=== PATIENT | male | born 1980 | race Caucasian/White ===

== ENCOUNTER 2021-05-21 17:57 | Emergency (ER) | payer MEDICARE, MEDICAID, SELFPAY ==
--- NOTE | 2021-05-21 18:10 | XRR_ITS ---
PROCEDURE INFORMATION: Exam: XR Chest Exam date and time: 05/21/2021 6:10 PM Age: 41 years old Clinical indication: Shortness of breath; Additional info: Dyspnea TECHNIQUE: Imaging protocol: XR of the chest. Views: 2 views. COMPARISON: No relevant prior studies available. FINDINGS: Lungs: Unremarkable. No consolidation. Azygos fissure, normal variant. Pleural spaces: Unremarkable. No pleural effusion. No pneumothorax. Heart/Mediastinum: Unremarkable. No cardiomegaly. Bones/joints: Unremarkable. XR/XR chest 2V* [id number] IMPRESSION: 1. No acute findings. 2. Azygos fissure, normal variant.
[2021-05-21 18:35] VITALS: PULSE 74; RESP 24; TEMP 36.7; O2SAT 98
--- NOTE | 2021-05-21 20:10 | ECG_ITS ---
[facility] Test Date: 2021-05-21 Pat Name: Josue Boyd Department: Room: Gender: Male Scanning Coordinator: : 1980 Requested By: Dewey Moy Order Number: [id number] Jennifer MD: Mitchell Ann M.D. Measurements Intervals Kite Rate: 70 P: 87 LA: 142 QRS: 67 QRSD: 78 T: 77 QT: 410 QTc: 444 Interpretive Statements SINUS RHYTHM No previous ECG available for comparison Electronically Signed On 05-22-2021 18:37:06 SENIOR PRODUCTION SUPERVISOR by Micthell Ann M.D. [id number]
[2021-05-21 22:13] VITALS: BP 128/81; PULSE 72; RESP 20; O2SAT 98
[2021-05-21 22:15] LABS: Basophils # 0.1 10^3/uL (0.0-0.1); Basophils % 0.3 %; Eosinophils # 0.1 10^3/uL (0.0-0.8); Eosinophils % 0.6 %; Hematocrit 40.7 % (42.0-52.0); Lymphocytes # 1.8 10^3/uL (0.8-4.8); Lymphocytes % 12.5 %; Mean Corpuscular HGB Conc 34.4 g/dL (30.0-36.0); Mean Corpuscular Hemoglobin 31.6 pg (28.0-34.0); Mean Corpuscular Volume 91.9 fl (80-94); Mean Platelet Volume 9.8 fL (7.4-10.4); Monocytes # 0.7 10^3/uL (0.2-0.9); Monocytes % 4.4 %; Neutrophils # 11.95 10^3/uL (1.8-7.7); Neutrophils % 81.9 %; Nucleated Red Blood Cells % 0 %; Platelet Count 314 10^3/cmm (130-400); Red Blood Count 4.43 10^6/uL (4.1-5.3); White Blood Count 14.6 10^3/uL (4.0-10.0)
[2021-05-21 22:43] LABS: Troponin(5th) Baseline 8 ng/L (0-15)
[2021-05-21 22:53] LABS: Alanine Aminotransferase 13 U/L (0-41); Albumin Level 4.2 g/dL (3.5-5.2); Alkaline Phosphatase 195 IU/L (40-130); Anion Gap 17.7 (5-19); Aspartate Amino Transferase 18 U/L (0-40); Blood Urea Nitrogen 16 mg/dL (6-20); Carbon Dioxide 24 mmol/L (22-29); Chloride 102 mmol/L (98-107); Glomerular Filtration Rate 123.1 mL/min (90-130); Glucose 106 mg/dL (65-115); NT Pro B Type Natriuretic Pept 365 pg/mL (0-125); Osmolality Calculated 292 mOsm/kg (285-295); Potassium 3.7 mmol/L (3.5-5.1); Sodium 140 mmol/L (136-145); Total Bilirubin 0.4 mg/dL (0.15-1.2); Total Protein 7.2 g/dL (6.6-8.7)
--- NOTE | 2021-05-22 00:39 | W.ED.SOB ---
HPI - SOB/Dyspnea General: Chief Complaint: Shortness of Breath/Dyspnea Stated Complaint: SOB X 1 WEEK Time Seen by Provider: 05/22/21 00:34 Source: patient Mode of arrival: ambulatory Limitations: no limitations History of Present Illness: HPI Narrative: 41-year-old male who states that over the last week he has had cough congestion low-grade fevers and body aches. He has been having a runny nose as well. Some dyspnea patient here is 98% on room air denies any known sick contacts is a smoker no history any lung issues in the past. Associated symptoms: Deny abdominal pain, chest pain, fever(s), nausea or vomiting Review of Systems Const: Denies: fever(s), chills, body aches or change in appetite Eyes: Denies: blurry vision or eye discomfort ENMT: Denies: throat pain or dental pain Card: Denies: chest pain Resp: Reports: dyspnea and non-productive cough GI: Denies: abdominal pain, nausea, vomiting or diarrhea : Denies: dysuria Musc: Denies: neck pain or back pain Skin/Breast: Denies: rash Neuro: Denies: headache(s) Psych: Denies: depression Jose Alejandro/Lymph: Denies: easy bruising All/Imm: Denies: urticaria PFSH ED PFSH: Family History (Updated 05/22/21 @ 00:53 by Yoli Nieves MD) Denies family history of CAD (coronary artery disease) Social History (Updated 05/22/21 @ 00:52 by Yoli Nieves MD) Smoking and tobacco status: current every day smoker Physical Exam Const: COMMON NORMALS: no acute distress, patient oriented x3 and healthy appearing HENMT: COMMON NORMALS: normocephalic and atraumatic HEAD & SCALP: normocephalic and atraumatic Eye: COMMON NORMALS: Equal, round and reactive pupils present and EOMs intact bilaterally PUPIL: Yes Equal, round and reactive pupils present Neck/C-Spine: COMMON NORMALS: full ROM and supple Chest: COMMONS NORMALS: normal inspection of the chest and normal palpation of entire chest wall Resp: COMMON NORMALS: normal respiratory effort, No retractions, No use of accessory muscles and clear to auscultation bilaterally AUSCULTATION: clear to auscultation bilaterally Cardio: COMMON NORMALS: regular rate, regular rhythm and No murmurs present (Cardio) RATE: regular rate RHYTHM: regular rhythm GI: COMMON NORMALS: Normal to inspection, nondistended, normoactive bowel sounds present, Soft to palpation, non-tender and no masses PALPATION: Yes Soft to palpation Extremity: COMMON NORMALS: normal to inspection and full ROM Neuro: COMMON NORMALS: patient oriented x3, moves all extremities and no focal motor deficits Psych: COMMON NORMALS: mental status grossly normal, Normal thought process present and cooperative THOUGHT PROCESS: Normal thought process present Skin: COMMON NORMALS: no rashes or lesions noted and no wounds GENERAL SKIN EXAM: no rashes or lesions noted Course Vital Signs: Vital signs: Vital Signs Temperature 98.0 F 05/21/21 18:35 Pulse Rate 72 05/21/21 22:13 Respiratory Rate 20 H 05/21/21 22:13 Blood Pressure 128/81 05/21/21 22:13 Pulse Oximetry 98 05/21/21 22:13 MDM - SOB/Dyspnea Medical Decision Making Patient presents here with cough congestion likely an upper respiratory infection we will do a PCR Covid patient given Decadron here we will place on albuterol and Augmentin he is stable for discharge is to follow-up with the PCP and return if worsening. Lab Data : 05/21/21 22:08 05/21/21 22:08 Labs/Radiology: Radiology Impressions Chest X-Ray 05/21/21 18:10 IMPRESSION: 1. No acute findings. 2. Azygos fissure, normal variant. Laboratory Results WBC 14.6 10^3/uL (4.0-10.0) H 05/21/21 22:08 RBC 4.43 10^6/uL (4.1-5.3) 05/21/21 22:08 Hgb 14.0 g/dL (11.7-16.6) 05/21/21 22:08 Hct 40.7 % (42.0-52.0) L 05/21/21 22:08 MCV 91.9 fl (80-94) 05/21/21 22:08 MCH 31.6 pg (28.0-34.0) 05/21/21 22:08 MCHC 34.4 g/dL (30.0-36.0) 05/21/21 22:08 RDW 13.0 % (12.1-15.1) 05/21/21 22:08 Plt Count 314 10^3/cmm (130-400) 05/21/21 22:08 MPV 9.8 fL (7.4-10.4) 05/21/21 22:08 Neut % (Auto) 81.9 % 05/21/21 22:08 Lymph % (Auto) 12.5 % 05/21/21 22:08 Gregory % (Auto) 4.4 % 05/21/21 22:08 Eos % (Auto) 0.6 % 05/21/21 22:08 Baso % (Auto) 0.3 % 05/21/21 22:08 Neut # (Auto) 11.95 10^3/uL (1.8-7.7) H 05/21/21 22:08 Lymph # (Auto) 1.8 10^3/uL (0.8-4.8) 05/21/21 22:08 Gregory # (Auto) 0.7 10^3/uL (0.2-0.9) 05/21/21 22:08 Eos # (Auto) 0.1 10^3/uL (0.0-0.8) 05/21/21 22:08 Baso # (Auto) 0.1 10^3/uL (0.0-0.1) 05/21/21 22:08 Nucleated RBC % (auto) 0 % 05/21/21 22:08 Nucleated RBCs # 0.0 /100WBC 05/21/21 22:08 Sodium 140 mmol/L (136-145) 05/21/21 22:08 Potassium 3.7 mmol/L (3.5-5.1) 05/21/21 22:08 Chloride 102 mmol/L (98-107) 05/21/21 22:08 Carbon Dioxide 24 mmol/L (22-29) 05/21/21 22:08 Anion Gap 17.7 (5-19) 05/21/21 22:08 BUN 16 mg/dL (6-20) 05/21/21 22:08 Creatinine 0.7 mg/dL (0.7-1.2) 05/21/21 22:08 GFR Calculation 123.1 mL/min (90-130) 05/21/21 22:08 Glucose 106 mg/dL (65-115) 05/21/21 22:08 Calculated Osmolality 292 mOsm/kg (285-295) 05/21/21 22:08 Calcium 9.0 mg/dL (8.5-10.5) 05/21/21 22:08 Total Bilirubin 0.4 mg/dL (0.15-1.2) 05/21/21 22:08 AST 18 U/L (0-40) 05/21/21 22:08 ALT 13 U/L (0-41) 05/21/21 22:08 Alkaline Phosphatase 195 IU/L (40-130) H 05/21/21 22:08 Troponin T Baseline 8 ng/L (0-15) 05/21/21 22:08 NT-Pro-B Natriuret Pep 365 pg/mL (0-125) H 05/21/21 22:08 Total Protein 7.2 g/dL (6.6-8.7) 05/21/21 22:08 Albumin 4.2 g/dL (3.5-5.2) 05/21/21 22:08 Globulin 3.0 g/dL (1.3-4.6) 05/21/21 22:08 Discharge Plan Discharge Patient Disposition: Home Clinical Impression: Upper respiratory infection Condition: Stable Prescriptions: New albuterol sulfate 90 mcg/actuation HFA aerosol inhaler 2 inh INHALATION Q6H PRN (Reason: shortness of breath or wheezing) Qty: 8 0RF Augmentin 875-125 mg tablet 1 tab PO BID Qty: 14 0RF Discharge Orders: Discharge ED (Routine); Ordered 05/22/21 Ordered By: Yoli Nieves Referrals: FARRAH NAGEL DO [Family Provider] - 1-3 days Discharge Diet: Advance as tolerated Discharge Activity: Resume usual activity Patient Instructions: Upper Respiratory Infection (ED) Coding Level of Care Code ED 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
[2021-05-22] MEDS: dexamethasone 10 mg/mL INJ IVP (00:53)
[2021-05-22 00:56] VITALS: BP 118/93; PULSE 69; RESP 18; TEMP 36.8; O2SAT 98
[2021-05-22 01:12] VITALS: PULSE 86; RESP 20; O2SAT 99
[2021-05-22] MEDS: albuterol 8 gm MDI 2 PUFF INHALATION (01:12)
[2021-05-22 01:43] VITALS: BP 130/78; PULSE 69; RESP 20; O2SAT 98
[2021-05-25 11:06] LABS: Quest SARS-CoV-2 RNA NOT DETECTED (NOT DETECTED)
--- NOTE | 2021-05-25 16:53 | PC.NURSE ---
Attempt to contact pt for COVID results. NO answer or voice mail
== END 2021-05-22 01:44 | disposition home or self-care (01) ==
PROVIDERS: Nurse Practitioner Family; Emergency Provider Emergency Medicine; Family Provider Family Medicine
DX: J06.9 Acute upper respiratory infection, unspecified (principal); F17.210 Nicotine dependence, cigarettes, uncomplicated; Z20.822 Contact with and (suspected) exposure to COVID-19
CPT/HCPCS: 71046; 80053; 83880; 84484; 85025; 87635; 93005; 94640; 96374; 99283; J1100; J3535